=== PATIENT | female | born 1980 | race Caucasian/White ===

== ENCOUNTER 2024-04-22 11:35 | Emergency (ER) | payer OTHER, SELFPAY ==
[2024-04-22 11:49] VITALS: BP 126/100; PULSE 79; TEMP 37.1; O2SAT 100; BMI 23.3
--- NOTE | 2024-04-22 12:08 | ED_ITS ---
HPI HPI - Extremity Injury (Upper) General Chief Complaint: Extremity Injury, Upper Stated Complaint: LEFT ARM PAIN Time Seen by Provider: 04/22/24 12:01 Source: patient Mode of arrival: walk-in Limitations: no limitations History of Present Illness HPI narrative: The patient presenting with a left arm pain that started this morning she denies having any other complaints she also mentioned that she had something similar almost few weeks ago when she was diagnosed with possibly a tendon rupture and that is her words The patient had no fall or trauma and she is still able to move her elbow with no difficulty except for pain whenever she is bending her elbow in flexion Related Data Home Medications ?Medication ?Instructions ?Recorded ?Confirmed paroxetine HCl 40 mg tablet mg PO DAILY 04/22/24 Previous Rx's ?Medication ?Instructions ?Recorded ibuprofen 600 mg tablet 600 mg PO TID PRN pain #20 tabs 04/22/24 Allergies Allergy/AdvReac Type Severity Reaction Status Date / Time Sulfa (Sulfonamide Allergy Severe Anaphylaxis Verified 04/22/24 11:53 Antibiotics) Opioid HPI Opioid Management Most Recent Pain and Opioid Data: Last Pain Scale 6 04/22/24 12:13 04/22/24 Last MAR Pain Assessment 04/22/24 12:13 Review of Systems ROS Status of ROS 10 or more systems reviewed and unremark able except as noted in history and below PFSH PFSH Social History Little interest or pleasure in doing things: not at all Feeling down, depressed, or hopeless: not at all Exam Narrative Exam Narrative: Nurses notes and vital signs reviewed and patient is not hypoxic. Left arm exam: The patient left arm examination shows no bony prominences tenderness the patient have full range of movement in the elbow and the shoulder and it was noted that the patient have the bicep tendon intact The tenderness was on palpation and the patient had no vascular injury General: Well-appearing and in no apparent distress. Skin: Warm, dry, no pallor noted. No rash. Head: Normocephalic, atraumatic. Neck: Supple, non-tender. Eye: Pupils are equal, round and EOMI. No scleral icterus. Ears, Nose, Mouth, and Throat: TM are clear, no nasal mucosal hypertrophy. Oral mucosa is moist, no posterior oropharynx erythema, uvula is mid-line Cardiovascular: Regular Rate and Rhythm without murmur, gallop or rub. Respiratory: No accessory muscle use or respiratory distress. Lungs are clear to auscultation, no wheezing, rales or rhonchi Chest Wall: no tenderness Back: No midline thoracic or lumbar vertebral tenderness. No CVA tenderness Musculoskeletal: normal ROM, no calf or popliteal tenderness, no lower extremity edema/swelling GI: Abdomen is soft, non-distended. Normal bowel sounds. No masses appreciated. No tenderness to palpation. No rebound, guarding, or rigidity noted. Neurological: A&O x4. No cranial nerve dysfunction observed. No truncal ataxia. Moves all extremities. Sensation intact. Psychiatric: Cooperative and interactive. Normal mood and affect. Constitutional Vital Signs, click to edit/add: Last Vital Signs Temp 98.8 F 04/22/24 11:49 Pulse 79 04/22/24 11:49 Resp 16 04/22/24 11:49 BP 126/100 H 04/22/24 11:49 Pulse Ox 100 04/22/24 11:49 O2 Del Method Room Air 04/22/24 11:49 Course Vital Signs Vital signs: Vital Signs Temperature 98.8 F 04/22/24 11:49 Pulse Rate 79 04/22/24 11:49 Respiratory Rate 16 04/22/24 11:49 Blood Pressure 126/100 H 04/22/24 11:49 Pulse Oximetry 100 04/22/24 11:49 Oxygen Delivery Method Room Air 04/22/24 11:49 Temperature 98.8 F 04/22/24 11:49 Pulse Rate 79 04/22/24 11:49 Respiratory Rate 16 04/22/24 11:49 Blood Pressure 126/100 H 04/22/24 11:49 Pulse Oximetry 100 04/22/24 11:49 Oxygen Delivery Method Room Air 04/22/24 11:49 MDM - Extremity Injury (Upper) MDM Narrative Medical decision making narrative: The patient presented to us with a muscle sprain She was started on Toradol in the ER in addition to ibuprofen as needed for pain sling applied and the patient to follow-up with orthopedic as outpatient Patient took some Vicodin for her mother yesterday to sleep although she mentioned that the pain started this morning but she was instructed not to take any Vicodin for the pain I did offer the patient an x-ray but I did mention to her that this mostly muscular and she agreed The patient is to follow up with primary care physician in next 2-3 days or to return to the emergency department should any of the signs or symptoms worsen or new symptoms develop. The patient agrees with the following Diagnosis and Treatment plan and the patient will be discharged home. Discharge Plan Discharge Chief Complaint: Extremity Injury, Upper Clinical Impression: Arm sprain Patient Disposition: Home, Self-Care Time of Disposition Decision: 12:09 Condition: Good Prescriptions / Home Meds: New ibuprofen 600 mg tablet 600 mg PO TID PRN (Reason: pain) Qty: 20 0RF No Action paroxetine HCl 40 mg tablet PO DAILY Print Language: Estonian Instructions: Sprain (ED) Referrals: Magi Franco MD [Primary Care Provider] - 1 week Jasvir Palencia MD [Physician] - 1 week Discharge Date/Time: 04/22/24 12:24
[2024-04-22] MEDS: KETOROLAC TROMETHAMINE 30 MG/ML VIAL IM (12:13)
== END 2024-04-22 12:24 | disposition home or self-care (01) ==
PROVIDERS: Emergency Provider Emergency Medicine; PCP Specialist
DX: S53.402A Unspecified sprain of left elbow, initial encounter (principal); X58.XXXA Exposure to other specified factors, initial encounter
CPT/HCPCS: 96372; 99284; J1885

== ENCOUNTER 2024-09-25 14:29 | Emergency (ER) | payer OTHER, SELFPAY ==
[2024-09-25 14:46] VITALS: BP 137/96; PULSE 87; TEMP 36.9; O2SAT 99; BMI 21.6
--- NOTE | 2024-09-25 15:05 | ED_ITS ---
HPI - Dental/Oral General Chief complaint: Dental/Oral Stated complaint: DENTAL INFECTION Time Seen by Provider: 09/25/24 14:44 Source: patient Mode of arrival: walk-in History of Present Illness HPI Narrative: Patient is a 43-year-old female who presents to the emergency department from her dentist office for IV antibiotics. Patient states that for 3 days she has had pain to tooth #20 with swelling of the left mandible. She saw the dentist today who ordered x-rays and she states she has an infection in the bone . She states she was referred to the ER for IV antibiotics. She has had no fevers. She reports nausea from pain. She states she is having trouble swallowing because of pain in the left mandible. She has no concern for . Related Data Home Medications ?Medication ?Instructions ?Recorded ?Confirmed paroxetine HCl 40 mg tablet 40 mg PO DAILY 04/22/24 09/25/24 Previous Rx's ?Medication ?Instructions ?Recorded clindamycin HCl 150 mg capsule 300 mg (2 x 150 mg) PO Q6H 10 days 09/25/24 #80 caps hydrocodone 5 mg-acetaminophen 325 1 tab PO Q6H PRN pain 2 days #8 09/25/24 mg tablet tabs ketorolac 10 mg tablet 10 mg PO TID PRN pain #10 tabs 09/25/24 ondansetron 4 mg disintegrating 4 mg PO Q6H PRN nausea and 09/25/24 tablet vomiting #12 tabs Allergies Allergy/AdvReac Type Severity Reaction Status Date / Time Sulfa (Sulfonamide Allergy Severe Anaphylaxis Verified 04/22/24 11:53 Antibiotics) Review of Systems ROS Constitutional Denies: fever or chills Ears, nose, mouth, and throat Denies: throat pain or nasal congestion Cardiovascular Denies: chest pain Respiratory Denies: shortness of breath or cough Gastrointestinal Reports: nausea; Denies: vomiting or diarrhea Musculoskeletal Denies: back pain Integumentary/Breast Denies: rash Neurological Denies: numbness in extremities or weakness in extremities Hematologic/Lymphatic Denies: easy bruising or easy bleeding PFSH PFSH Social History Little interest or pleasure in doing things: not at all Feeling down, depressed, or hopeless: not at all Exam Narrative Exam Narrative: Gen.: Awake, alert, in no distress Head: Normocephalic, atraumatic ENT: Moist mucous membranes, mild swelling noted to the left mandible with no significant swelling noted. Tooth #20 with erosion to the gumline. No active drainage. No redness or swelling under the tongue. No trismus or drooling. Clear speech. Respiratory: No respiratory distress Extremities: Moves extremities equally Psych: Normal mood and affect Neuro: No focal neuro deficit Skin: Warm, dry, intact Constitutional Vital Signs, click to edit/add: Last Vital Signs Temp 98.4 F 09/25/24 14:46 Pulse 87 09/25/24 14:46 Resp 18 09/25/24 14:46 BP 137/96 H 09/25/24 14:46 Pulse Ox 99 09/25/24 14:46 Course Vital Signs Vital signs: Vital Signs Temperature 98.4 F 09/25/24 14:46 Pulse Rate 87 09/25/24 14:46 Respiratory Rate 18 09/25/24 14:46 Blood Pressure 137/96 H 09/25/24 14:46 Pulse Oximetry 99 09/25/24 14:46 Temperature 98.4 F 09/25/24 14:46 Pulse Rate 87 09/25/24 14:46 Respiratory Rate 18 09/25/24 14:46 Blood Pressure 137/96 H 09/25/24 14:46 Pulse Oximetry 99 09/25/24 14:46 MDM - Dental/Oral MDM Narrative Medical decision making narrative: It was recommended to the patient that she have a CT of the soft tissue of the neck given her reporting that she has an infection in the bone per the dental x-rays and she is having difficulty swallowing. I discussed the reasoning for this CT of the soft tissue of the neck, to rule out any issues with the airway or soft tissue infections extending into the neck. Osteomyelitis of the bone would also be able to be seen. Patient declined a CT scan, she states I do not need that . She was medicated with IV clindamycin, Toradol and Zofran and given dental analgesia. She has no fevers or tachycardia. Her airway is widely open and patent on exam in the ER and she has no difficulty tolerating her secretions, speaking or swallowing. Suspect that this patient has a simple dental abscess, will treat with antibiotics, analgesics since none were provided by the dentist office. Follow-up with dental and return to the ER if symptoms change or worsen SUPERVISED APC VISIT, PHYSICIAN ATTESTATION: Based on the medical record the care appears appropriate. ? Discharge Plan Discharge Chief Complaint: Dental/Oral Clinical Impression: Dental abscess Patient Disposition: Home, Self-Care Time of Disposition Decision: 15:17 Condition: Good Prescriptions / Home Meds: New hydrocodone-acetaminophen 5-325 mg tablet 1 tab PO Q6H PRN (Reason: pain) 2 Days Qty: 8 0RF Rx Instructions: DX: K08.89 clindamycin HCl 150 mg capsule 300 mg PO Q6H 10 Days Qty: 80 0RF ketorolac 10 mg tablet 10 mg PO TID PRN (Reason: pain) Qty: 10 0RF ondansetron 4 mg tablet,disintegrating 4 mg PO Q6H PRN (Reason: nausea and vomiting) Qty: 12 0RF No Action paroxetine HCl 40 mg tablet 40 mg PO DAILY Print Language: Albanian Instructions: Dental Abscess (ED) Additional Instructions: Please finish antibiotics and follow up with your dentist Referrals: Magi Franco MD [Primary Care Provider] - 1 week
--- OUTSIDE RECORDS SUMMARY | 2024-09-25 15:05 | XMS_ITS | CCD ---
Author Organization [facility] Care Team Providers Care Resistor Inspector Name Role Phone Michael Vivas Attending Provider [phone] Magi Franco Primary Care Provider Jocelynn Ko Unavailable Sybil Yanes Unavailable FRANCO ., DR MAGI Ibanez Primary Care Unavailable GAYATRI ., ANA Admitting Unavailable GAYATRI ., ANA Attending Unavailable GAYATRI ., ANA Consulting Unavailable ALEJANDRA ., DR VEGA Admitting Unavailable FRANCO ., DR MAGI Ibanez Primary Care Unavailable ALEJANDRA ., DR VEGA Attending Unavailable ALEJANDRA ., DR VEGA Consulting Unavailable ZIEBER, DR JASVIR Espinoza Consulting Unavailable FRANCO ., DR MAGI Ibanez Attending Unavailable FRANCO ., DR MAGI Ibanez Consulting Unavailable FRANCO ., DR MAGI Ibanez Primary Care Unavailable FRANCO ., DR MAGI Ibanez Admitting Unavailable BAY ., BOLA Admitting Unavailable ZIEBER, DR JASVIR Espinoza Consulting Unavailable BAY .BOLA Attending Unavailable FRANCO ., DR MAGI Ibanez Primary Care Unavailable BAY .BOLA Consulting Unavailable Lelo Curran Attending Unavailable Manoj Vázquez Attending Unavailable Allergies Allergy Classification Reported Allergen(s) Allergy Type Date of Onset Reaction(s) Facility Sulfonamides (antibiotic) (1 source) Sulfonamides (Antibiotic) Drug Allergy 12-05-19 21 Swelling of Lip/Tongue/Thr oat [facility] (2 sources) Codeine Drug Allergy anaphylaxis [facility] Other (2 sources) Ketorolac Drug Allergy hives [facility] Other (2 sources) Naproxen Drug Allergy rash [facility] Other (2 sources) Sulfonamides (Antibiotic) Propensity to adverse reactions anaphylaxis [facility] Other (1 source) Sulfonamides (Antibiotic) Drug allergy (disorder) [facility] (1 source) traMADol Drug Allergy [facility] (1 source) Sulfonamides (Antibiotic); Translations: [sulfa drugs] Propensity to adverse reactions (disorder) [facility] Medications Current Medications Medication Drug Class(es) Dates Sig (Normalized) Sig (Original) [id number] 200 actuat albuterol 0.09 mg/actuat metered dose inhaler (1 source) beta2-Adrenergic Agonist Start: 05-01-2021 take 2 puff(s) by inhalation every four hours as needed Albuterol Sulfate HFA 108 (90 Base) MCG/ACT 2 puffs as needed Inhalation every 4 hrs Apr, Active atorvastatin 20 mg oral tablet (3 sources) HMG-CoA Reductase Inhibitor Start: 12-04-2020 take 20 mg by mouth once daily in the morning Atorvastatin Active 20 MG PO Every morning December 04, 2020 1:31pm Lipitor Active bisoprolol fumarate 5 mg / hydroCHLOROthiazide 6.25 mg oral tablet (3 sources) Thiazide Diuretic, beta-Adrenergic Cruz Start: 12-04-2020 take 1 tablet by mouth once daily in the morning Bisoprolol-Hydrochlorothiazide Active 1 TAB PO Every morning December 04, 2020 1:31pm Ziac Active cetirizine hydrochloride 10 mg oral tablet (3 sources) Histamine-1 Receptor Antagonist Start: 12-04-2020 take 10 mg by mouth once daily in the morning Cetirizine Active 10 MG PO Every morning December 04, 2020 1:31pm ZyrTEC Allergy A ctive estrogens, conjugated (fci) 0.3 mg oral tablet (3 sources) Estrogen Start: 12-04-2020 take 1 tablet by mouth once daily in the morning Conjugated Estrogens (Premarin) 0.3 mg tablet Active 0.3 MG PO Every morning December 04, 2020 1:31pm Premarin Active hydrOXYzine (2 sources) Antihistamine hydrOXYzine HCl Active levothyroxine sodium 0.1 mg oral tablet (3 sources) l-Thyroxine Start: 12-04-2020 take 100 ug by mouth once daily in the morning Levothyroxine Active 100 MCG PO Every morning December 04, 2020 1:31pm Levoxyl Active methylPREDNISolone 4 mg oral tablet (1 source) Corticosteroid Start: 05-01-2021 methylPREDNISolone 4 MG as directed Orally Once a day for 6 days Apr, Active PARoxetine hydrochloride 40 mg oral tablet (3 sources) Serotonin Reuptake Inhibitor Start: 12-04-2020 take 40 mg by mouth once daily in the morning Paroxetine Hcl Active 40 MG PO Every morning December 04, 2020 1:31pm Paxil 40MG 1 rema ly Active Problems Active Problems Problem Classification Problem Date Documented Date Episodic/Chronic Chronic obstructive pulmonary disease and bronchiectasis (1 source) Chronic obstructive pulmonary disease, unspecified; Translations: [COPD UNSPECIFIED] Onset: 2 Chronic Disorders of lipid metabolism (1 source) Pure hypercholesterolemia, unspecified; Translations: [PURE HYPERCHOLESTEROLEMIA UNSPEC] Onset: 2 Chronic E Codes: Natural/environment (1 source) Exposure to other specified factors, initial encounter; Translations: [EXPOSURE OTHER SPEC FACTORS INITIAL] Onset: 3 Episodic Essential hypertension (2 sources) Essential hypertension; Translations: [Essential (primary) hypertension] Chronic Other aftercare (1 source) Other exterminator helper termite (current) drug therapy; Translations: [OTH FPC CURRENT DRUG THERAPY] Onset: 3 Episodic Other connective tissue disease (3 sources) Pain in right arm; Translations: [PAIN IN RIGHT ARM] Onset: 3 Episodic Other upper respiratory disease (2 sources) Seasonal allergic rhinitis; Translations: [Other seasonal allergic rhinitis] Chronic Other upper respiratory infections (1 source) Chronic sinusitis, unspecified; Translations: [CHRONIC SINUSITIS UNSPECIFIED] Onset: 2 Chronic Sprains and strains (1 source) Strain of unspecified muscle, fascia and tendon at shoulder and upper arm level, right arm, initial encounter; Translations: [STRN UNS MSC F TND SHLDR UA RA INIT] Onset: 3 Episodic Substance-related disorders (1 source) Nicotine dependence, cigarettes, uncomplicated; Translations: [NICOTINE DEPEND CIGARETTES UNCOMP] Onset: 3 Chronic Unclassified (2 sources) COUGH, UNSPECIFIED; Translations: [COUGH, UNSPECIFIED] Onset: 2 Past or Other Problems Problem Classification Problem Date Documented Da te Episodic/Chronic Chronic obstructive pulmonary disease and bronchiectasis (1 source) Bronchitis, not specified as acute or chronic; Translations: [Bronchitis J40] Onset: 05-01-2021 Resolved: 05-01-2021 Episodic Deficiency and other anemia (4 sources) Anemia, unspecified; Translations: [ANEMIA UNSPECIFIED] Onset: 12-16-2021 Episodic Immunizations and screening for infectious disease (1 source) Contact with and (suspected) exposure to other viral communicable diseases; Translations: [Contact with and (suspected) exposure to other viral communicable diseases Z20.828] Onset: 05-01-2021 Resolved: 05-01-2021 Episodic Other screening for suspected conditions (not mental disorders or infectious disease) (4 sources) Encounter for screening mammogram for malignant neoplasm of breast; Translations: [ENC SCR MAMMO MALIG NEOPLASM BREAST] Onset: 02-17-2022 Episodic Other upper respiratory infections (1 source) Acute sinusitis, unspecified; Translations: [ACUTE SINUSITIS UNSPECIFIED] Onset: 12-11-2021 Episodic Residual codes; unclassified (1 source) Family history of malignant neoplasm of breast; Translations: [FAMILY HX MALIG NEOPLASM OF BREAST] Onset: 02-18-2022 Episodic Unclassified (1 source) COUGH, UNSPECIFIED; Translations: [COUGH, UNSPECIFIED] Onset: 12-07-2021 Results Test Name Value Interpretation Reference Range Facility MG MAMM SCREEN 3D LISA CADon 02-17-2022 MG MAMM SCREEN 3D LISA CAD Patient: HALI HORVATH Exam Date: 02/17/2022 : 1980 Gender:F Ordering : DR SILVIA ROBERTS . Admission #: [id number] Family : Order #: [id number] CLICK HERE TO VIEW EXAM RADIOLOGY REPORT PROCEDURE: MAMMOGRAM SCREENING 3D BILATERAL CAD COMPARISON: None. INDICATIONS: Screening mammography Calculator Name NCI Breast Cancer Risk Assessment Tool 5 Year Breast Cancer Risk 0.70% Lifetime Breast Cancer Risk 10.00% Personal Breast Cancer No Personal Ovarian Cancer No Treatments None Family Cancers Aunt-paternal with breast cancer at age 50. LOCATION: [facility] BREAST COMPOSITION: Extremely dense, which lowers the sensitivity of mammography. FINDINGS: DIAGNOSTIC CATEGORY 1--NEGATIVE. RIGHT BREAST: No significant suspicious finding. LEFT BREAST: No significant suspicious finding. RECOMMENDATIONS: ROUTINE MAMMOGRAM AND CLINICAL EVALUATION IN 12 MONTHS. PLEASE NOTE: A NORMAL MAMMOGRAM DOES NOT EXCLUDE THE POSSIBILITY OF BREAST CANCER. A CLINICALLY SUSPICIOUS PALPABLE LUMP SHOULD BE BIOPSIED. Dictated by: Jasvir Pak M.D. on 02/18/2022 at 14:19 Approved by: Jasvir Pak M.D. on 02/18/2022 at 14:22 Normal [facility] FOLATE ([facility])on 2 Folate 9.1 ng/mL Normal >3.0 [facility] Comment on above: Result Comment: A se rum folate concentration of less than 3.1 ng/mL is considered to represent clinical deficiency. Performed By: #### F OLALC #### [facility] [address] [place] [address] Dr. Luis Houston CBC AUTO DIFFon 12-16-2021 BASO # 0.0 103/ul Normal 0.0-0.1 [facility] Comment on above: Performed By: #### C BC #### [facility] [address] [place] [address] Dr. Luis Houston Basophils/100 WBC (Bld) 0.4 % Normal 0.2-2.0 [facility] Comment on above: Performed By: #### C BC #### [facility] [address] [place] [address] Dr. Luis Houston EO # 0.1 103/ul Normal 0.0-0.7 [facility] Comment on above: Performed By: #### C BC #### [facility] [address] [place] [address] Dr. Luis Houston Eosinophils/100 WBC (Bld) 0.9 % Normal 0.9-7.0 [facility] Comment on above: Performed By: #### C BC #### [facility] [address] [place] [address] Dr. Luis Houston Erythrocyte distribution width (RBC) [Ratio] 11.8 % Normal 11.0-15.0 [facility] Comment on above: Performed By: #### C BC #### [facility] [address] [place] [address] Dr. Luis Houston Hematocrit (Bld) [Volume fraction] 40.9 % Normal 36.0-48.0 [facility] Comment on above: Performed By: #### C BC #### [facility] [address] [place] [address] Dr. Luis Houston Hemoglobin (Bld) [Mass/Vol] 13.9 g/dL Normal 12.0-16.0 [facility] Comment on above: Performed By: #### C BC #### [facility] [address] [place] [address] Dr. Luis Houston IG # 0.18 10e3/ul Critically high 0.00-0.03 [facility] Comment on above: Performed By: #### C BC #### [facility] [address] [place] [address] Dr. Luis Houston IG % 1.7 % Critically high 0.0-0.5 [facility] Comment on above: Performed By: #### C BC #### [facility] [address] [place] [address] Dr. Luis Houston LYMPH # 2.8 103/ul Normal 1.2-3.8 [facility] Comment on above: Performed By: #### C BC #### [facility] [address] [place] [address] Dr. Luis Houston Lymphocytes/100 WBC (Bld) 26.1 % Normal 20.5-60.0 [facility] Comment on above: Performed By: #### C BC #### [facility] [address] [place] [address] Dr. Luis Houston MANUAL DIFF REQ NO Normal [facility] Comment on above: Performed By: #### C BC #### [facility] [address] [place] [address] Dr. Luis Houston MCH (RBC) [Entitic mass] 31.8 pg Normal 26.7-34.0 [facility] Comment on above: Performed By: #### C BC #### [facility] [address] [place] [address] Dr. Luis Houston MCHC (RBC) [Mass/Vol] 34.0 g/dL Normal 29.9-35.2 [facility] Comment on above: Performed By: #### C BC #### [facility] [address] [address] [address] Luis Houston MCV (RBC) [Entitic vol] 93.6 fL Normal 81.0-99.0 [facility] Comment on above: Performed By: #### C BC #### [facility] [address] [address] [address] Luis Houston MONO # 0.8 103/ul Normal 0.3-0.8 [facility] Comment on above: Performed By: #### C BC #### [facility] [address] [address] [address] Luis Houston Monocytes/100 WBC (Bld) 7.4 % Normal 1.7-12.0 [facility] Comment on above: Performed By: #### C BC #### [facility] [address] [address] [address] Luis Houston NEUT # 6.8 103/ul Critically high 1.4-6.5 [facility] Comment on above: Performed By: #### C BC #### [facility] [address] [address] [address] Luis Houston Neutrophils/100 WBC (Bld) 63.5 % Normal 43.0-75.0 [facility] Comment on above: Performed By: #### C BC #### [facility] [address] [address] [address] Luis Houston Platelet mean volume (Bld) [Entitic vol] 10.1 fL Normal 9.5-13.5 [facility] Comment on above: Performed By: #### C BC #### [facility] [address] [address] [address] Luis Houston PLT 290 103/ul Normal 150-450 [facility] Comment on above: Performed By: #### C BC #### [facility] [address] [address] [address] Luis Houston RBC 4.37 106/ul Normal 4.20-5.40 [facility] Comment on above: Performed By: #### C BC #### [facility] [address] [address] [address] Luis Houston WBC 10.7 103/ul Normal 4.0-11.0 [facility] Comment on above: Performed By: #### C BC #### [facility] [address] [address] [address] Luis Houston DIRECT LDLon 12-16-2021 Cholesterol in LDL [Mass/Vol] 82 mg/dL Normal [facility] Comment on above: Performed By: #### T SH, DLDL, CMP, FT3, LIPID ####[facility] [id number] [id number] Luis Houston DLDL NORMAL SEE BELOW Normal [facility] Comment on above: Result Comment: <100 mg/dl OPTIMAL 100 - 129 mg/dl NEAR OR ABOVE OPTIMAL 130 - 159 mg/dl BORDERLINE HIGH 160 - 189 mg/dl HIGH >190 mg/dl VERY HIGH Performed By: #### T SH, DLDL, CMP, FT3, LIPID ####[facility] [id number] [address]Dr[address] Luis Houston FREE T3on 12-16-2021 FREE T3 2.23 pg/mlL Normal 2.18-3.98 [facility] Comment on above: Performed By: #### T SH, DLDL, CMP, FT3, LIPID #### [facility] [address] [address] [address] Luis Houston FREE T4on 12-16-2021 Free T4 [Mass/Vol] 0.91 ng/dL Normal 0.76-1.46 [facility] Comment on above: Performed By: #### F T4, VITB12 #### [facility] [address] [address] [address] Luis Houston LIPID PROFILEon 12-16-2021 CHOL-HDL RATIO NORM SEE BELOW Normal [facility] Comment on above: Result Comment: 3.3 - 4.4 LOW RISK 4.4 - 7.1 AVERAGE RISK 7.1 - 11.0 MODERATE RISK >11.0 HIGH RISK Performed By: #### T SH, DLDL, CMP, FT3, LIPID #### [facility] [address] [address] [address] Luis Houston Cholesterol [Mass/Vol] 179 mg/dL Normal <=200 [facility] Comment on above: Performed By: #### T SH, DLDL, CMP, FT3, LIPID #### [facility] [address] [address] [address] Luis Houston Cholesterol in HDL [Mass/Vol] 28 mg/dL Critically low 40-60 [facility] Comment on above: Performed By: #### T SH, DLDL, CMP, FT3, LIPID #### [facility] [address] [place] [address] Dr. Luis Houston Cholesterol.total/ Cholesterol in HDL [Mass ratio] 6.4 {ratio} Normal [facility] Comment on above: Performed By: #### T SH, DLDL, CMP, FT3, LIPID #### [facility] [address] [place] [address] Dr. Luis Houston HDL NORMAL > or = 60 mg/dl - LOW CARDIOVASCULAR RISK <40 mg/dl - HIGH CARDIOVASCULAR RISK Normal [facility] Comment on above: Performed By: #### T SH, DLDL, CMP, FT3, LIPID #### [facility] [address] [place] [address] Dr. Luis Houston Triglyceride [Mass/Vol] 470 mg/dL Critically high <=150 [facility] Comment on above: Performed By: #### T SH, DLDL, CMP, FT3, LIPID #### [facility] [address] [place] [address] Dr. Luis Houston PROF 14(COMP METB)on 022 Albumin [Mass/Vol] 3.9 g/dL Normal 3.4-5.[address] [facility] Comment on above: Performed By: #### T SH, DLDL, CMP, FT3, LIPID #### [facility] [address] [place] [address] Dr. Luis Houston Albumin/Globulin [Mass ratio] 1.0 {ratio} Normal [facility] Comment on above: Performed By: #### T SH, DLDL, CMP, FT3, LIPID #### [facility] [address] [place] [address] Dr. Luis Houston ALP [Catalytic activity/Vol] 83 U/L Normal 46-116 [facility] Comment on above: Performed By: #### T SH, DLDL, CMP, FT3, LIPID #### [facility] [address] [place] [address] Dr. Luis Houston ALT [Catalytic activity/Vol] 48 U/L Normal 14-59 [facility] Comment on above: Performed By: #### T SH, DLDL, CMP, FT3, LIPID #### [facility] [address] [place] [address] Dr. Luis Houston Anion gap [Moles/Vol] 15.5 mmol/L Normal [facility] Comment on above: Performed By: #### T SH, DLDL, CMP, FT3, LIPID #### [facility] [address] [place] [address] Dr. Luis Houston AST [Catalytic activity/Vol] 28 U/L Normal 15-37 [facility] Comment on above: Performed By: #### T SH, DLDL, CMP, FT3, LIPID #### [facility] [address] [place] [address] Dr. Luis Houston Bilirubin [Mass/Vol] 0.5 mg/dL Normal 0.2-1.0 [facility] Comment on above: Performed By: #### T SH, DLDL, CMP, FT3, LIPID #### [facility] [address] [place] [address] Dr. Luis Houston Calcium [Mass/Vol] 9.0 mg/dL Normal 8.5-10.[address] [facility] Comment on above: Performed By: #### T SH, DLDL, CMP, FT3, LIPID #### [facility] [address] [place] [address] Dr. Luis Houston Chloride [Moles/Vol] 101 mmol/L Normal 98-107 [facility] Comment on above: Performed By: #### T SH, DLDL, CMP, FT3, LIPID #### [facility] [address] [address] [address] Luis Houston CO2 [Moles/Vol] 26.2 mmol/L Normal 21.0-32.0 [facility] Comment on above: Performed By: #### T SH, DLDL, CMP, FT3, LIPID #### [facility] [address] [address] [address] Luis Houston Creatinine [Mass/Vol] 0.80 mg/dL Normal 0.55-1.02 [facility] Comment on above: Performed By: #### T SH, DLDL, CMP, FT3, LIPID #### [facility] [address] [place] [address] Dr. Luis Houston EGFR-AF PARAGUAYAN >60 Normal >=60 [facility] Comment on above: Performed By: #### T SH, DLDL, CMP, FT3, LIPID #### [facility] [address] [place] [address] Dr. Luis Houston EGFR-NON AF PARAGUAYAN >60 Normal >=60 [facility] Comment on above: Performed By: #### T SH, DLDL, CMP, FT3, LIPID #### [facility] [address] [place] [address] Dr. Luis Houston Globulin (S) [Mass/Vol] 3.9 g/dL Normal [facility] Comment on above: Performed By: #### T SH, DLDL, CMP, FT3, LIPID #### [facility] [address] [place] [address] Dr. Luis Houston Glucose [Mass/Vol] 117 mg/dL Critically high 74-106 [facility] Comment on above: Performed By: #### T SH, DLDL, CMP, FT3, LIPID #### [facility] [address] [place] [address] Dr. Luis Houston Potassium [Moles/Vol] 3.7 mmol/L Normal 3.5-5.1 [facility] Comment on above: Performed By: #### T SH, DLDL, CMP, FT3, LIPID #### [facility] [address] [place] [address] Dr. Luis Houston Protein [Mass/Vol] 7.8 g/dL Normal 6.4-8.[address] [facility] Comment on above: Performed By: #### T SH, DLDL, CMP, FT3, LIPID #### [facility] [address] [place] [address] Dr. Luis Houston Sodium [Moles/Vol] 139 mmol/L Normal 136-145 [facility] Comment on above: Performed By: #### T SH, DLDL, CMP, FT3, LIPID #### [facility] [address] [place] [address] Dr. Luis Houston Urea nitrogen [Mass/Vol] 9.0 mg/dL Normal 7.0-18.0 [facility] Comment on above: Performed By: #### T SH, DLDL, CMP, FT3, LIPID #### [facility] [address] [place] [address] Dr. Luis Houston Urea nitrogen/Creatinin e [Mass ratio] 11.2 mg/mg Normal [facility] Comment on above: Performed By: #### T SH, DLDL, CMP, FT3, LIPID #### [facility] [address] [place] [address] Dr. Luis Houston TSHon 12-16-2021 TSH 0.475 uIU/mL Normal 0.358-3.740 [facility] Comment on above: Performed By: #### T SH, DLDL, CMP, FT3, LIPID #### [facility] [address] [place] [address] Dr. Luis Houston VITAMIN B12on 12-16-2021 Cobalamin (Vitamin B12) [Mass/Vol] 457.0 pg/mL Normal 193.0-986.0 [facility] Comment on above: Performed By: #### F T4, VITB12 #### [facility] [address] [place] [address] Dr. Luis Houston Coding Summaryon 11-24-2021 Coding Summary [employer] 64 NevgnnzrZOr0nWq+PGhl YWQ+LX3BJLTmB49kdFKd dD4EP4vJXZ9EINJDPXCB IL5GCE8keBR5ZZxqD7Vt biAv PndrcTLsAY92VZq4RTY5 xBavZIcweR4wgXMtS8s8 TbHmQE64wA61UNyqXLNi DwA5CoVbpykyaZBe T2eeXpYnrMPyXbk+PHRh YmxlIHdpZHRoPScxMDAl YcSksWqtYO8tIx3xBRXf LWNvbGxhcHNlOiBj m3mxWOSzCEjsKL8jtScy K8FocSW0LQZcy9v5Mz58 dHI+OAGhULZ2wFrsPIli w684CaLwo4wyEYQ0 gQCcEDplNPJ8C34gh8Z7 YEYtAMKoOXT7aHU0zB5j rFhulfvrP8ThcRKsFxF5 LUO8cEJhfP6yaQct ariknK5eMie+B65ZJK3Q GHLSAL1SNmp4R3DiTdmd dHI+CY32YIUyRT10wPMo hDHpb7ljlAm8GaBr VGOtRVZ0fRixRLtcj9Ks VXOwJ37viVKmd6M3DJZj yFjqeLWoPfSvsYS3rV9t NGejavqiy1ivdahf Pugkh5pjfg12iL13I82f PZvcEZPpDNM7JXBfCAZt uJvsne7lbE1nSu1+IDxj a9jyz6hfwFf7DcAv DLMcvcQxfScgGBE2u7Fj Hz63O4OmlDpxy7SpPpj1 ym40iQInj7Z8jOY0PRdr PIWvtA5oUTbiDcQ8 RKRdLjZbuB06jNQoKGrj Dv0rjVwdfVukND7wCVCf qfegHOAzyZ7vLLLpnXVn kMngHH6xKTPrxrab r685AoWzLFF2POIyzXBf G4KxkJ8gWqGqZHCdRJEa W5JicCUnZIamR214DGad ViD1QHUmurJxL7Uw JCLwrRudGvL5r9J7Kf1R z3VndtivNRA8CGwnMKE8 LoNhSqKiYnT2B7YsHko9 FBDdsJvcEO0tJ7Um ORXzmbdcbceyrUW8LWPh KAEzpV51sMBtZThfXs8e o5O0d953BTYaNOHdgZ83 Aw0mkZckYVGzrCBS oQ7nievjg8ipvgqaBmFt UAAtAFk6FMv6UHHqzGao WgDwQLI2XoH2UBC8lSAt iR7zxBkevdfvwQ7b Oyc+G72aoM2xSKS3UAY5 nyhuNARsnwLfKW04JU92 Y5FwMqcnpEAfiHV+PGRp irEklHfdNM1kBkLh j3tqy1JsGKqrZ7WsGLTq VCuyIsy9NQJtOHW5rYL2 hK0nBMFmCJmxj2Y5eGD4 F7AugdSsfl7kb3wm UGSfQZsbI10weTVwf9I1 DXIbfXQ0SRAdzIxtTpVg qP44Fhl+UTEykZznf4Eq Iootn6ede7aqhFq7 IjMwJSIgdmFsaWduPSJ0 t5SdXl68L73qOBaqKCRj YPNlBWKqFIMzfQkqih1x nI3cYc9+PGNvbCB3 zSW6mD6dPCKwRiY0ARzs U642DsFcjZCsIbalg8zw d7jmxQs8HeYoSSQhqqSu jOpbWYV5q6FkGc33 O09rZBtaFLCxPYRwJRXh GAJrdYcyhi7cxC6tQm7+ PC9mi0tgwy73pQ29jVE+ SEIvOKZ0gLczXYos JXYwwH4dZGumFaN7SYTp WnPvfT74nWGwLQrtCl1e fPdbuUomVX5vLAKoetwd n790PcPbq1nvKASo yNTmFDplFDB9I39re6Y9 ZIEzXYSsVPC7vRA6uX7p bGlnbjogbGVmdDsgdmVy xZihYErjESacW259 IHRvcDsnPlBhdGllbnQg UoPkSIh7W4CpPwn1EHGw oYveQE0glHIiKEwgIt6s vEtdfFljJO4gPPRr thatx272KpMmn2gwLCWq qBJhRCfqRYH7L01ze8A6 JOBeDRUnABD8nRN7eN1f bGlnbjogbGVmdDsg usTvrCsdZMdhDZreN914 IHRvcDsnPkJpcnRoIERh zXK0UZ96GY89aCTjl8U7 yNY5G9ZvINBvwukd rotqhUH5OIFuQNZqvH76 Vb1pnLwlAa3xDNFqTDV2 IKRwbAOgK7GxrB3hGpGz AQUyURKbH7DyfIPw GDfrY112NAtzJzT3MGQb gzIzY9UkCKAnpYrmTuB8 p4T5Dx8LA0S4FW13CM33 cUVse0L1hMF0C9Lr KZQlnfpuimvclDY7MXOj FHAjcK73Sz4afTglIo1n HELgSHK4PWTytFJxU7My aR8oUqDcQCRxPMVf V9DesKUaEXwyP245HGec OwH1HSIwszBsD8HqEQVr wDtkNzL1f9E4Az0BTCa8 UJ37GR50vJYol8D4 aYR2W4UqAHZfxdbadxis yFG1LBMuFWZplS84Cu4p aJjuPp3rDHJcCFE6CLFn hFDgJ8OoqD0wBdTa XBOvBWHkW4CjcQGaWBtn N151LVawEnW3IUYmdtDj B0LiTTBrpKixTeH7y4P7 Yh1YUYLuTW47XHY2 eMF4FN84OI24H5KjZmkh dGFibGU+PHRhYmxlIHdp ZHRoPScxMDAlJyBzdHls PC9oJp4hFHLiFOVn wTnqhRVvLbGse2pjRZEo JOiyQT9nrOwyW6FqpQP0 KVYbx2j1Wg48E33oE4Fv dXA+CYXgaLM2lVG4 wD7sGqStIcN7ROncO707 GgDcuLFfPqanp2vdt7vo zGs7UwS2YVMosdBjnYal IQM3y9PfPv24L78s IHdpZHRoPSIxNSUiIHZh kYdvuh7mcA9mEi6+PGNv kTZ4eCM9yN8kQbCdXaW1 NOvlQ919VpAvxJKv Yfatp9qca7ihdYp2NeGa YLAvpfPpxSfxUHF6r9Eh Lv18J5VgvRqsg1XgUal9 df06dLGsp4Y2zFN9 B3TqIWDmzhvboVGnrIyq UV7eACSubykjMPBgpH3y MHKfD6y4FqXuSnW8FUvu I4CtxpJ0BBGbhOVi XNgbFGW7C05hl7S8BJPa LASiERK4xQP8dU2coQez bjogbGVmdDsgdmVydGlj VDvxBAkyZ002SGVe xIwuHXJcdM3pIPWbvUMm gZdfFR1fRDNaleonGrSU VUNLLCBDQVJSSUUgTDwv dGQ+FKEjTCZ4vXqs UYqvWCScoW5xXRZnA6m0 QhGwFwE5NYygD8MpZPWr lxezQf76qU2tEtLfDrO9 GYmeF7YuhgF8IGRg gNXzJHccQLQ1W18ae5C8 CGQpPDYyWZM8lMB6vN8w bGlnbjogbGVmdDsgdmVy eLxtHIweNHtpD150 WFUiaKdqRfK4EwR7QkX2 SJD0M0WwBoq0FIWwrZay TK8oqDWbJItfSi7nyUvy gTxoKM3fZGVtvyne PTZleI9wNBQmxGPgnGxf JC4aTYJvpyktr450VaEx TKD2AQDuxNKyJ8JasR6f BnRdNWMeZCHrW6Sk dTIeKTqlR238IRqxTeI2 KQKlkpXeT4VxPVLhwEis FfN7o8I0Qs00AyDAGXXa czwvdGQ+PHRkIHN0 tNlwENnoNEFkjX4iROPd H1k0QsDzKlM9DBogN7Se ZYOkvzdjRj07zD1jXyRj JoA2HJivG0NastG7 GOFdcWOiSTzmYXA6A14b p5U8UEWqZVHvCQK2kAG3 rS1gtDvozwaviOJdhPgx dmVydGljYWwtYWxp G576SKFydIipMtJIJXAM RTwvdGQ+NMQkMBM6nYgo BZyrJAZsqW2xJRKqX9g5 MaItBdC4VDwkM5Ue KTJggtkfQp87uP8cNeYj ZgI7HOibF4TwjjL0EHHf zLYcTGcmFAK4J76rn1X8 IJTwJBQeNQX4xKN6 lL9moXdwacsnhHTbrJuh mqNrfMkhXSkjOOlwJ589 ZBMokVyhMx1LKE98UE91 S3QwKreayWRqjYR+ PHRhYmxlIHdpZHRoPScx IGKgWyRjsBtdPH7zCg7x ZGVyLWNvbGxhcHNlOiBj b6uaROEjYKdcHG0j wVdcN5EplOK8JBZar3r4 Zi00U26uK0VorKX+PGNv tXR4uJA6zM7qPjLhIuC5 STffM373MsRshYMo Qsoby7nor7uceFf1RjSk NBRzoxRwbCbpTSG9n8Sd Hy97M80hQOmrDILrERCn ROCxCAPpqGnhcj7a nS3qTx7+WDWsiRC3mIV7 cJ5jFcXgCnR4ITkeP536 ZdMcjKXfLqlpI47vL5Ub dXA+IJLuAva1QSGc tPtgKT1ztAChAXpqSk8h BZM1EiInItWxMJzaD2Rx GEErlqcredugkGM5VNEy XYOmaK61Yo1hnQxr Wk2iJJTnRDA8BRUeePXb O5GvyJ2yThFhRZMaURDz Y0KeiJZfHWgmX772DWra TwC6RNIwcyJfH4Dw MIZxkSxeMwH5u5S1Mo7W nMxlnOUfUT7fUyUpQDl1 I5QcOcc7GVJogEndGP1g qYCaVJbqYu2cqBvl xSgfCJ8kQPQjxataz590 RqVkg1izBEJgnPOkGSaa QSC9Y08zp6U0YYKlASPd TFD0uOA0zM3ynXsf bjogbGVmdDsgdmVydGlj RFywSCziX695EFIueGtg OlMUSld2U7SmGmo7CEBv zVekPP2klMUfXDeq Sv0koYtofRhiHE8aWFJw wmoan475RaJpp1frWPAi cOWhOUytMFQ2L56kn9I8 WXEdVCUnWJN1zFN4 pP9rmVfegvwkaVXktUca jzRftEryJUqkUHqyE000 MOQbeSvjYq5MXjs0O7Gf Nvy7RVZfiQzfDP1n yYPuOJgsFn2uhVmiwQrj EU6wYDOropcxk109BiSm y0oeSSLqvWCuSOezGAG2 J86yg8P2OLNaSEMt NKU5rSC3dA0dnOdeexas bGVmdDsgdmVydGljYWwt EOckP386PXRvpUvxBaZy eWVyOjwvdGQ+PC90 md29A2JcTsyyAtt8JGFe QSK2uOS6gL5pTWWqXVfr t7C2gLM1C0InhwTvaa3a [id number] [facility] (more content not included)... [facility] ED Clinical Summaryon 2021 ED Clinical Summary [facility] ? Urgent Care [address] [place] [address] Clinical Summary PERSON INFORMATION Name: HALI CHILD Age: 41 Years Sex: FEMALE : 1980 MRN: Acct#: Visit Reason: UC - Back Pain; RT SHOULDER PAIN BACK PAIN Arrival: 11/18/2021 11:23:53 Discharge: 11/18/2021 12:23:00 LOS: 000 01:00 Check In: 11/18/2021 11:23:53 Checkout: 11/18/2021 12:23:00 Address: [address] [place] [id number] PCP: MAGI FRANCO PROVIDER INFORMATION Provider Role Assigned Unassigned Duke RN, Domen[place] ED Nurse 11/18/2021 11:36:37 Yan Yarbrough PA-C ED PA 11/18/2021 11:40:34 VITALS INFORMATION Vital Sign Triage Latest Temperature Tympanic Temperature Temporal Artery Pulse Rate O2 Sat 99 % 99 % Respiratory Rate Blood Pressure /82 mmHg /82 mmHg MEDICAL INFORMATION Medications Given: Medication Dose Route ketorolac 30 mg IM Allergy Information: sulfa drug PHYSICIAN DOCUMENTATION DISCHARGE INFORMATION: Discharge Disposition: Home Discharge Location: Home PATIENT EDUCATION INFORMATION Instructions: Shoulder Pain, Drrv-iz-Usyg; Sciatica, Bxtr-fn-Iyrq Follow-Up: With: Address: When: MAGI FARNCO [address] [place], [place] [id number] Business (1) Within 1 week Comments: Please follow-up with Dr. Franco, call the office schedule an appointment to be seen in a week or sooner for continued care, take your Medrol Dosepak and baclofen as prescribed, take ctyk-crq-gyugxjj Tylenol as needed, please be aware not to take xajd-jnn-ovsnepz nonsteroidals while you are taking the Medrol Dosepak, and return back to the urgent care center for any worsening symptoms, concerns, or complications. DIAGNOSIS: 1:Sciatica of left side without back pain; 2:Chronic right shoulder pain; Other chronic pain Patient Understands: Yes - Patient/family/careg aliciaer verbalizes understanding of instructions given Comment: [facility] ED Patient Summaryon 022 ED Patient Summary [facility] ? Urgent Care [address] [place] [address] PATIENT DISCHARGE INSTRUCTIONS Patient Information Name: HALI CHILD Age: 41 Years Date of : 1980 Reason For Visit: UC - Back Pain; RT SHOULDER PAIN BACK PAIN Arrival Time: 11/18/2021 11:23:53 Phone: Primary Care Physician: MAGI FRANCO Attending Physician: Yan Yarbrough PA-C Comment: Patient Education With: Address: When: MAGI FRANCO [address] [place] [phone] Business (1) Within 1 week Comments: Please follow-up with Dr. Franco, call the office schedule an appointment to be seen in a week or sooner for continued care, take your Medrol Dosepak and baclofen as prescribed, take wvaa-skr-ouewraw Tylenol as needed, please be aware not to take dpis-fay-ibedqbg nonsteroidals while you are taking the Medrol Dosepak, and return back to the urgent care center for any worsening symptoms, concerns, or complications. Shoulder Pain Many things can cause shoulder pain, including: ? An injury. ? Moving the shoulder in the same way again and again (overuse). ? Joint pain (arthritis). Pain can come from: ? Swelling and irritation (inflammation) of any part of the shoulder. ? An injury to the shoulder joint. ? An injury to: ? Tissues that connect muscle to bone (tendons). ? Tissues that connect bones to each other (ligaments). ? Bones. Follow these instructions at home: Watch for changes in your symptoms. Let your doctor know about them. Follow these instructions to help with your pain. If you have a sling: ? Wear the sling as told by your doctor. Remove it only as told by your doctor. ? Loosen the sling if your fingers: ? Tingle. ? Become numb. ? Turn cold and blue. ? Keep the sling clean. ? If the sling is not waterproof: ? Do not let it get wet. ? Take the sling off when you shower or bathe. Managing pain, stiffness, and swelling ? If told, put ice on the painful area: ? Put ice in a plastic bag. ? Place a towel between your skin and the bag. ? Leave the ice on for 20 minutes, 2?3 times a day. Stop putting ice on if it does not help with the pain. ? Squeeze a soft ball or a foam pad as much as possible. This prevents swelling in the shoulder. It also helps to strengthen the arm. General instructions ? Take mzuo-xou-nqdppef and prescription medicines only as told by your doctor. ? Keep all follow-up visits as told by your doctor. This is important. Contact a doctor if: ? Your pain gets worse. ? Medicine does not help your pain. ? You have new pain in your arm, hand, or fingers. Get help right away if: ? Your arm, hand, or fingers: ? Tingle. ? Are numb. ? Are swollen. ? Are painful. ? Turn white or blue. Summary ? Shoulder pain can be caused by many things. These include injury, moving the shoulder in the same away again and again, and joint pain. ? Watch for changes in your symptoms. Let your doctor know about them. ? This condition may be treated with a sling, ice, and pain medicine. ? Contact your doctor if the pain gets worse or you have new pain. Get help right away if your arm, hand, or fingers tingle or get numb, swollen, or painful. ? Keep all follow-up visits as told by your doctor. This is important. This information is not intended to replace advice given to you by your health care provider. Make sure you discuss any questions you have with your health care provider. Document Revised: 01/03/2019 Document Reviewed: 01/03/2019 [employer] Patient Education ? 2020 [employer] Sciatica Sciatica is pain, weakness, tingling, or loss of feeling (numbness) along the sciatic nerve. The sciatic nerve starts in the lower back and goes down the back of each leg. Sciatica usually goes away on its own or with treatment. Sometimes, sciatica may come back (recur). What are the causes? This condition happens when the sciatic nerve is pinched or has pressure put on it. This may be the result of: ? A disk in between the bones of the spine bulging out too far (herniated disk). ? Changes in the spinal disks that occur with aging. ? A condition that affects a muscle in the butt. ? Extra bone growth near the sciatic nerve. ? A break (fracture) of the area between your hip bones (pelvis). ? . ? Tumor. This is rare. What increases the risk? You are more likely to develop this condition if you: ? Play sports that put pressure or stress on the spine. ? Have poor strength and ease of movement (flexibility). ? Have had a back injury in the past. ? Have had back surgery. ? Sit for long periods of time. ? Do activities that involve bending or lifting over and over again. ? Are very overweight (obese). What are the signs or symptoms? Symptoms can vary from mild to very bad. They may include: ? Any of these proble (more content not included)... [facility] 022 Urgent Care Record [facility] ? Urgent Care [address] [place], [place] [id number] PATIENT DISCHARGE INSTRUCTIONS Patient Information Name: HALI CHILD Age: 41 Years Date of : 1980 Reason For Visit: UC - Back Pain; RT SHOULDER PAIN BACK PAIN Arrival Time: 11/18/2021 11:23:53 Phone: Primary Care Physician: MAGI FRANCO Attending Physician: Yan Yarbrough PA-C Comment: Visit Diagnosis: Diagnoses This Visit Chronic right shoulder pain (M25.511) Other chronic pain (G89.29) Sciatica of left side without back pain (M54.32) UC - Back Pain ([id number]) If you received any narcotics, sedation, or any other medication that causes drowsiness for the next 24 hours, unless otherwise directed: ? Do not drive a car. ? Do not operate machinery such as power tools, lawn mowers, drills, sewing machines, or stoves ? Avoid alcoholic beverages and drugs for allergies, nerves, or sleep ? Do not make important personal or business decisions or sign any legal documents With: Address: When: MAGI FRANCO [address] [facility] [place] [address] Business (1) Within 1 week Comments: Please follow-up with Dr. Franco, call the office schedule an appointment to be seen in a week or sooner for continued care, take your Medrol Dosepak and baclofen as prescribed, take ulbu-ioe-tejrpmv Tylenol as needed, please be aware not to take icti-ztq-mypkqgf nonsteroidals while you are taking the Medrol Dosepak, and return back to the urgent care center for any worsening symptoms, concerns, or complications. Medication Information: The exam and treatment you received today in the [facility] were for an urgent problem and are not intended as complete care. It is important for you to follow up with a doctor, nurse practitioner, or physician?s district administrative assistant for ongoing care. If your symptoms become worse or you do not improve as expected and you are unable to reach your usual health care provider, you should return to the Emergency Department, we are available 24 hours a day. For those patients who have received Radiology results, the interpretation of your X-ray as given to you by our Urgent Care physician is only a preliminary report. The Radiologist will review your films and if there is a change in the diagnosis you will be notified by phone. Please make sure you have provided a working phone number so we can reach you if necessary. In the event that you had a lab culture while you were a patient in the Urgent Care, you will be notified by phone if there is a need to change your antibiotic. Please make sure you have provided a working phone number so we can reach you if necessary. [facility] has provided you with a complete list of medications post discharge. Please inform your primary counselor/provider of your visit and for further instruction on these medications. Any specific questions regarding your chronic medications and dosages should be discussed with your primary care physician(s) and/or pharmacist. New Medications [facility], [address] [place], [place] [id number], [phone] baclofen (baclofen 10 mg oral tablet) 0.5 tab(s) Oral 3 times a day for 10 Days. Refills: 0. methylPREDNISolone (Medrol Dosepak 4 mg oral tablet) 1 packet(s) Oral once. as directed on package labeling. Refills: 0. Other Medications ketorolac (ketorolac 30 mg/mL injectable solution) 1 Milliliter Intramuscular once. MAGRU. Medications to Continue That Have Not Changed Other Medications atorvastatin (Lipitor 20 mg oral tablet) 1 tab(s) Oral every day. bisoprolol-hydrochlo rothiazide (Ziac 2.5 mg-6.25 mg oral tablet) 1 tab(s) Oral every day. cetirizine (ZyrTEC 10 mg oral tablet) 1 tab(s) Oral every day. levothyroxine (levothyroxine 100 mcg (0.1 mg) oral capsule) 1 cap(s) Oral every day. PARoxetine (Paxil 40 mg oral tablet) 1 tab(s) Oral every day. Visit Information Allergies: Substance Reaction Symptoms Type Comments sulfa drug Drug Vital Signs: Vitals and Measurements this Visit (last charted value for your 11/18/2021 visit) Vital Signs This Visit Temperature Temporal: 36.6 DegC Apical Heart Rate: 67 bpm Respiratory Rate: 18 br/min Systolic Blood Pressure: 120 mmHg Diastolic Blood Pressure: 82 mmHg SpO2: 99 % Oxygen Therapy: Room air Measurements This Visit Height: 165.1 cm Weight: 72.57 kg Body Mass Index: 26.62 kg/m2 Problems List: Problem Onset Comments Anxiety Chronic right shoulder pain Hypercholesteremia Hypertension Hypothyroidism Sciatica of left side without back pain Patient Education Shoulder Pain Many things can cause shoulder pain, including: ? An injury. ? Moving the shoulder in the same way again and again (overuse). ? Joint pain (arthritis). Pain can come from: ? Swelling and irritation (inflammation) of any part of the shoulder. ? An injury to the shoulder j (more content not included)... [facility] Provider [place] 09-29-2021 Provider Orders [id number] #1.00OTGTIFF [facility] COVID Quick Testingon 2020 Result Negative [employer] Other Consent Formson 12-27-2020 Consent Forms [id number] [facility] [place] [facility]2020 Provider Orders [id number] [facility] C[facility] 12-19-2020 Coding Summary [employer]Base 64 DahmjngkUFf6aAr+PGhl YWQ+UU0TYVJcI74apBJv cF2PT1iIIQ0QLSXIBJPL EQ3JWN7npFK9DIfkO5Pr biAv EbzjbCQqHC92CXp9WSP7 pHxiKFvxoT0ukHNcV9l4 QhOnZK26qX58WCyuLCPq GjT8InPgflgkuCOm E4tsMpGevEJqMcr+PHRh YmxlIHdpZHRoPScxMDAl SbFlnIccSP8vRd1nMHPl LWNvbGxhcHNlOiBj b9ynGAHmCXedQA8kcHoc G9TyyAJ0JZPwz5q7Uv89 dHI+DUJtRHX5kMeaEVwd p504BxFqv0bnWOZ1 yYUbQXbvDVQ7M04aj4V2 GRTrROVuSQL3eZQ7kV4i cCspwfybV8NsqYCsCtD9 WNT9lBKthO3kyLxv knibeK3xQxv+Z93EMY6Z EWZSGI4LTwa8E6DfSopu dHI+ZJ00FGPjLG75oSJh dGHyx9tscVh5MvBn JCGmSPW7bIdzTWtki2Iu OSQuQ36wzGAeu8U9YVZj kNyoaYLbSsDziFC2uK8a ECtpadnoz5hgilay Pigju8lkkv79zJ29L09h RMjoACJpDJL9WKNgABEz yHrbaz3ydG5cBu8+IDxj v3tje8aluPp0OhBa OAFynaSatTdmYNS9t2Ox Iv28W1YlcCcet3OaKej0 fn34sGYbr3A0jWC4EJbf SHJqjI0oYItdRmD1 UNHmDhZtyJ98dNWsLHow Tt6bpHbwbAfoXH2lRGOy gqffTUAtzB9aXSRyqWDu zRkgEE5tTZXjnipk w112GkXaGNI1HSMmxTTd T3SafV2aObHiOWXpEZUj J0AmvWXuRIyrN256WKms LvL1SFZtvgDnQ0Si BNHmaHoiKvD2m2I3Ig4K d3YeuyflDAQ1SLeuNJE8 WuT6EmBlQeI8E4XdRlx5 GLBspRxfSE9xU3Kq EKIdwjyrgjomkZK1EYKg WADmqU43wLScMYykXz2r c4Q8e170SPKaCCResJ65 Me9mfAzvVRVtkMJM hT0qdhicy7rfaznaMjSo MICzKZm2QDf3ZMZafMii ZyLuWOB7KaT4RKC0dSOy jO5cuNdikrwppY0f Oyc+Z87amM1pZLS4BNA5 ilneJGHodvGnUD44UB07 K0EqBqzndCZzhNE+PGRp osQjfVqdLN6qMjMw a8nhc8BuDMyuP8QdGRYf IEkeQqa0UNIdUFE0cJB8 xE8vSZDoMLfip7K0qQA4 U8SujnSjsz8uf9og BFRmPPmrG92htZOyy5I4 PLUhqEO4RONidAtpIpJc oM49Xlr+JMLeiRwyd9Hl Afpno7pit9mnsSx3 IjMwJSIgdmFsaWduPSJ0 l1TiLx65L62eTDgrQOYx HBFqKAJeZJUbxMizsf0u lR8zTz8+PGNvbCB3 sDW2oU7qVVNhBwV4FSby B548UzBgnVIkJttmp4zq t8ozzIu0IpShQHFnauEv wKqcXIA4a1NwMx11 X94yXCfhIBGkCJEuPGQp VXZsfMbyim5qpM9sXp3+ WT0vb9tfrv73vK77pEL+ KVTiTCD9eTrxKRgz VCWqrM5kJLdwLyJ7YPTl IzDdnH41tXPhSJtwOk0c sLgxyFbiAM9zXYWaeqiu p389AmUur7yeCJFj vNCwMUyoRWX0T89ql5Q1 HRJzXNSpKWU0gYA9aZ2b bGlnbjogbGVmdDsgdmVy wLdxJKssUKagB123 IHRvcDsnPlBhdGllbnQg MvZoECd0T2DcOcs0TJVb uMkrOB6azHXsNAoxDw2m qIyxtFiwJT0mHDTy ihoxe532YdTko0yaPZRw yNKrONkuVLB5C84ls6Q0 RDKyEZWlQEB2xFL3oX6a bGlnbjogbGVmdDsg fxBncSgeVMucYGzhB876 IHRvcDsnPkJpcnRoIERh aUI4VT76GL23sHCru8B9 tMR7E8GhVJVwpswh ofxjeOI2WNOaNDSqjZ82 Aa8irMptTx6jOOBiCIS8 GBOgwILwG9IjkR3fPvXc KZTzXLOmJ4LzcANn VIrrB902STsaFqO5RIBi jrTcQ7MfYFSqjTzzXnL7 u6C0Jc6YP0O7HT47TO61 nNFkv3T5tDD6T7Fc WUEftphoyikasHD6UCVh KCSuwJ57Wz9nsDeqMe9v WLVoQNE3QHIecRFsG6Bp aJ7yBjBoNFJiTWOb Q7SfcVSuHLvnI695UMaa PwA5YNZbypAgV8PkDQUj cRkuChJ1s2G3Fo5SLUr1 IV39JH99oTLlc9W3 jMH2P7UfNDIrtoabzjrv xRA4PYOdCDAagV09Zd2n gHlgHl9cJJUoGZE2OIAo iDDwY0IevS6bMbCm TLYwQWBdY7JqsRRgPOga K244JMqoVnD1PXXqmpHm T3XlGJBjfKdjJlQ2k6Y4 Cv2EHIUiIT51QLO6 iYK9CE48YL10E3DuUfoy dGFibGU+PHRhYmxlIHdp ZHRoPScxMDAlJyBzdHls BH8lJl5vDRXqNAVp tNmmyTFjHaDzc5isIVNt KWzdAB8oeDyiZ1PegIZ1 TZFgw1v3Tq48O15yD4He dXA+EHEysLE4fTB1 vV9yCmGvIfY3XPkrH423 TqRejNEuItdag8mfm2zi bXp6ZiW3QENxntKdbOex ROV1p9SlXi50P97i IHdpZHRoPSIxNSUiIHZh lJgyjb8lxK9sGx5+PGNv qBB1cDN9lR3hYvEqYaI7 GBfaD314ExEubJBl Cjshq4ske9hdySj0FjJm IUIhykJqmYeyTBO7q3Qp Nz45X4MbdGxnl6HjVfl9 ox21dZDxw4O3mRK2 O3PaKCMimhsfdARcpWog RY6aLMLthmyeQYNywR7l TINmQ2l5NiNkHfH6KRos H9WjryY0UAYhhOUr ZNnxKLI7T52ti7T3KUJj DLEpLOB4dKI4qQ9vgQjw bjogbGVmdDsgdmVydGlj JCvfHDprQ616WULz cQviYJMhxZ0yPCHkpWFu fNgyLO3cGEQbxxmyMkAU VbQRWbptO3KSJlvDDWq6 O3DtZyk6HPHtbHdy HH1caXRkFTmnUj5ykMna dAsuER0cHZEvybtoLASb xO5rPZOloXLnlDoaNG2m JKBoytkpc060SrKh DLN4BEYroROkK2UjhR8a AnTyPTMyRXUsU5AxsNGv NLukS040KRomRyV5GBBb ekYoQ4PqHJWtmIhk LiA5x3K0Di9gLQ3ePK6g FEpvBV97BS23jNTxo6F1 bNS2J5HxFAVlybxjupka sPP1MHHbGNJzyV83 nUReZVgoFt9ie8Y9i247 ELKyLMLfxY67Gj0mgBcu JPIquRFDnH2xjauyi7jt cjogIzAwMDAwMDt0 BCl2DSDziUtrMqXnWJW4 YqO9TDU0dHRqxA0flGtm tyszyZ2oVlh+NDEgWWVh ygF8E7RjXlt1ZTTv aEiqMD1epNByQCtnYj6f oNjbxExrOI3iWOFvmltj WEFacM0hBJPdrFEftHbp FT4uUOWweoxee572 SqHvNUD2XWFjmKSaU6Ib hY3hNvIfUWMlPHQeC0Ou kVIhNBwqM510GFcjEeW4 YSCupqQeH5TsZJUi lNeeGcA6g8A4Ar1WQX5H RZF6H4SpOne8JRTgyAgn QH1tmQYnIQrkJi9qvZkn iCbkFW4jWQTmxugg QOAkaP4iVTKnvHQkhSav QQ5xRYLadjnwf845JvHr MQB2BWLqtGRkA4GemO7n HgYvKZFrMWFsZ5Jb bSVcDRrsU544HOsuPiI9 QXBnmjJlS6ZxMISbpUan DdQ6a6N4In6CKRlynNO+ NS66ri23W2XcEaqy Cnm5DKFjDTC3qFV5dG6y EXXbQBypb5C6pFT7T4Lp jzMaum1so2onSFXiFIcf H06hpWAuf2I7POYs wBE5OXMenUwoRsHeqD22 Oyc+TRHobAyzz4BkHcpf k0uth2jtgXg9ScQrFCGl pcVyfZdsJAU6t6Yo Jc60O66fJIkhZUBoMMDi DIZaMSPteZfycz3cxN7t Ii8+BDXnlVC2fFV4yZ1d PhUhFlF2VMhqT531 LyDzqDBlVdbvn7pmn1bf zUi2PiIaCNSjhpDykXzg HTH4y6TcTh54N5OluNcg u8JnPsr6ne93mESn u7Y2dAM6J4RzHYBdecbm bCSvlPmdOL6jBKTurdnh VKDwaG4mKAMnH2x2HiHy EvW6KXxtI5JgorL9 CYZmxNXzQXXdfCCBpY1d rbdrl2kxdxloGrPqFOZr QKe3RQt1MWGxnXaqMtHb BYS8OlB0FXL6hZBk jH7hmYlzwmhyvA1mPda+ KTz9s1vqsTJkDU6lpYQ1 FP06DN78mSQsw7U2zGF9 D9EfLXAbubirmziz tUN1IKQzVRIbjF89Wf3e sQusLt9nVGVlBSK6PZHd xCUaH4HqgT5vCwWnRLDc FNYvB1CcvFZhXVeb D455YMbnZbO4NMBejqMx D1UwPOPauTkcTtT6t3Z0 Cr3TUU96HU63RW32sSXt x1M9wCZ8S1RgOMMt zqbgzknsnZG5FEHcHDQj oD65Qy7ohKhhLp2lHWYl CNE8BOYrjDXpE0FdpU8m OpXnXNOjQXUpH7Bk pURlQKexO779SHfaYdM8 GZLipqDfV5SeWVZioRcj BgG1d9L9Do5ERx12MR43 HG19rEKqe9F8dGR4 W8JkIPFptmvggqlykRB8 ARWzSZUktS02Ua1dqZts Ht1lWCZpSYW1BOWrvMKl I3GhcJ4cZhHzWYJs XCSjC2HybQHnWAuwN746 HJpcQqL7MVLsruVkJ9Vw EFQphKhbXxM3h7T0Gn3S LXdojji3K3ZdAvlh dHI+PB41JEEbGC27pAGt fAIqv4zxoZa0DoVjPAGn STP9cZqkGWale4TqATHk F54eqIUqc3O4AUSa bGx (more content not included)... Normal [facility] 2018 Novel Coronavirus (CoVI D-19), TERESO LCon 12-14-2020 SARS-CoV-2 (COVID-19) RNA TERESO+probe Ql (Unsp spec) Not detected Invalid Interpretation Code Not Detected [facility] Comment on above: Order Comment: [id number] Result Comment: This nucleic acid amplification test was developed and its performance characteristics determined by [employer]. Nucleic acid amplification tests include RT- PCR and TMA. This test has not been FDA cleared or approved. This test has been authorized by FDA under an Emergency Use Authorization (EUA). This test is only authorized for the duration of time the declaration that circumstances exist justifying the authorization of the emergency use of in vitro diagnostic tests for detection of SARS-CoV-2 virus and/or diagnosis of COVID-19 infection under section 564(b)(1) of the Act, 21 U.S.C. 360bbb-3(b) (1), unless the authorization is terminated or revoked sooner. When diagnostic testing is negative, the possibility of a false negative result should be considered in the context of a patient's recent exposures and the presence of clinical signs and symptoms consistent with COVID-19. An individual without symptoms of COVID-19 and who is not shedding SARS-CoV-2 virus would expect to have a negative (not detected) result in this assay. Performed At: [address] [id number] Juan Daniel Wu PhD Ph:[phone] Performed By: #### [id number] #### [facility] (DEFAULT) [address] [place] [id number] Basic Metabolic Panelon 06 Estimated GFR ( Sofie > 60 [facility] Comment on above: Result Comment: GFR estimated reference range: According to KDOQI guidelines, <60 ml/min/1.73m2 is sufficient to diagnose a patient with chronic kidney disease. Performed By: #### B MP #### [facility] [address] Estimated GFR (Non- Am > 60 [facility] Comment on above: Performed By: #### B MP #### [facility] [address] ECG 12 lead ECGon 12-04-2020 ECG 12 lead ECG [facility] Main Colp [address] [place] [address] Electrocardiograph Report Signed Patient: Hali Horvath MR#: [id number] : 1980 Acct:[id number] Age/Sex: 40 / F ADM Date: 12/04/20 Loc: Room: Type: [facility] Attending Dr: Michael Vivas MD Ordering Provider: Michael Vivas MD Date of Service: 12/04/20 ECG/ECG 12 lead ECG: pst Copies to: Test Reason : Blood Pressure : / mmHG Vent. Rate : 057 BPM Atrial Rate : 057 BPM P-R Int : 148 ms QRS Dur : 092 ms QT Int : 454 ms P-R-T Axes : 021 020 044 degrees QTc Int : 441 ms Sinus bradycardia Otherwise normal ECG No previous ECGs available Confirmed by LUÍS ROMAN DO, FACC ([id number]) on 12/05/2020 10:35:15 AM Referred By: NICK Electronically Signed By:LUÍS ROMAN DO, FACC Transcribed By: RENATA Dictated By: Luís Roman DO 12/04/20 1357 Signed By: 12/05/20 1035 [facility] Estimated glomerular filtrat ion rate (GFR) non- Americanon 12-04-2020 GFR/1.73 sq M.predicted among non-blacks MDRD (S/P/Bld) [Vol rate/Area] > 60 mL/Min [facility] No Panel Informationon 12-04 Estimated GFR () > 60 mL/Min [facility] Comment on above: GFR estimated refere nce range: According to KDOQI guidelines, <60 ml/min/1.73m2 is sufficient to diagnose a patient with chronic kidney disease. Pharmacy Creatinine Clearance (Chem N/A [facility] Serum or plasma calcium ambrose urement (mass/volume)on 12-04-2020 Calcium [Mass/Vol] 9.2 mg/dL Normal 8.2-10.2 [facility] Comment on above: Result Comment: PERF ORMED BY: [address] [place] [address] PATHOLOGIST [employer] TRENA WOLFE M.D. Performed By: #### B MP #### [address] [address] Serum or plasma chloride dario surement (moles/volume)on 12-04-2020 Chloride [Moles/Vol] 98 mmol/L Normal 95-114 [facility] Comment on above: Performed By: #### B MP #### [address] Serum or plasma creatinine m easurement with calculation of estimated glomerular filtron 12-04-2020 Creatinine [Mass/Vol] 0.77 mg/dL Normal 0.44-1.03 [facility] Comment on above: Performed By: #### B MP #### [address] Serum or plasma glucose ambrose urement (mass/volume)on 12-04-2020 Glucose [Mass/Vol] 82 mg/dL Normal 70-100 [facility] Comment on above: ADA recommended refe rence rangeRandom Glucose Reference Range is dependent on time and content of last meal. Glucose of more than 200 mg/dL in a nonstressed, ambulatory subject supports the diagnosis of Diabetes Mellitus. Result Comment: [place] om Glucose Reference Range is dependent on time and content of last meal. Glucose of more than 200 mg/dL in a nonstressed, ambulatory subject supports the diagnosis of Diabetes Mellitus. ADA recommended reference range Performed By: #### B MP #### [address] Serum or plasma potassium me asurement (moles/volume)on 12-04-2020 Potassium [Moles/Vol] 4.2 mmol/L Normal 3.5-5.1 [facility] Comment on above: Performed By: #### B MP #### [address] Serum or plasma sodium measu rement (moles/volume)on 12-04-2020 Sodium [Moles/Vol] 135 mmol/L Low 136-146 [facility] Comment on above: Performed By: #### B MP #### [address] Serum or plasma total carbon dioxide measurement (moles/volume)on 12-04-2020 CO2 [Moles/Vol] 25.5 mmol/L Normal 22.0-30.0 [facility] Comment on above: Performed By: #### B MP #### [address] Serum or plasma urea nitroge n measurement (mass/volume)on 12-04-2020 Urea nitrogen [Mass/Vol] 7 mg/dL Low 9-23 [facility] Comment on above: Performed By: #### B MP #### [address] Vital Signs Date Time Vital Sign Value Performing Clinician Facility 09-24-2022 10:25-0400 Body height 166.37 cm Sybil Yanes Other [employer] [facility] [employer] Other 09-24-2022 10:25-0400 Body mass index (BMI) [Ratio] 28.84 kg/m2 Sybil Yanes Other [employer] Other 09-24-2022 10:25-0400 Body temperature 97.2 [degF] Sybil Yanes Other [employer] Other 09-24-2022 10:25-0400 Body weight 79.83 kg Sybil Yanes Other [employer] [facility] Other 09-24-2022 10:25-0400 Respiratory rate 18 /min Sybil Yanes Other [employer] Other 09-24-2022 10:25-0400 SaO2% (BldA) [Mass fraction] 96 % Sybil Yanes Other [employer] [facility] Other 05-01-2021 16:15-0400 Body height 166.37 cm Jocelynn Gambleault Other [employer] [facility] Other 05-01-2021 16:15-0400 Body mass index (BMI) [Ratio] 28.84 kg/m2 Jocelynn Stefani Other [employer] [facility] Other 05-01-2021 16:15-0400 Body temperature 98.2 [degF] Jocelynn Gambleault Other [employer] Other 05-01-2021 16:15-0400 Body weight 79.83 kg Jocelynn Gambleault Other [employer] Other 05-01-2021 16:15-0400 Respiratory rate 18 /min Jocelynn Stefani Other [employer] [facility] Other 05-01-2021 16:15-0400 SaO2% (BldA) [Mass fraction] 97 % Jocelynn Stefani Other [employer] Other Encounters Encounter Date Encounter Type Care Provider Facility Start: 08-31-2024 End: 08-31-2024 ambulatory Lelo Curran Facility:[facility] Carine acosta Start: 08-15-2024 End: 08-15-2024 ambulatory Manoj Vázquez Facility:[facility] Carine acosta Start: 09-24-2022 Patient encounter procedure Sybil Yanes [facility] Start: 09-24-2022 End: 09-24-2022 ambulatory BOLA HERMOSILLO . [facility] [address] Other Start: 02-17-2022 End: 02-18-[address] SILVIA ROBERTS . Facility:[facility] Start: 12-16-2021 End: 12-17-[address] MAGI FRANCO . Facility:[facility] Start: 12-07-2021 End: 12-07-[address] MAGI FRANCO . Facility:[facility] Start: 05-01-2021 Office outpatient visit 15 minutes Jocelynn Ko [facility] Start: 12-04-2020 End: 12-04-2020 Patient encounter procedure Michael Vivas Work Phone: -Pre-Surgical Testing Payers Date Payer Category Payer Unknown [id number] 1980 Unknown [id number] [id number] [id number] 1980 Unknown [id number] 2.16.84 [id number] 1979 Unknown [id number] 2.16.84 [id number] 1979 Unknown [id number] 2.16.84 [id number] 1979 Unknown [id number] 2.16.8 [id number] 1979 Unknown [id number] 2.16.8 [id number] 1960 Medicaid [id number] 2. [id number] 1960 Unknown [id number] Self-pay Self Pay [id number] Social History Date Type Detail Facility Start: 12-04-2020 Tobacco smoking status NHIS Ex-smoker (finding) [facility] Start: 1980 Sex Assigned At Female F [facility] Sex Assigned At Sex Assigned At Bir th [employer] Other Clinical Note 09-24-2022 Note Date & Type Note Facility 09-24-2022 Note PROCEDURE: XR HUMERU S RT MIN 2 V HISTORY: Pain in right arm , limited range of motion; no known injury COMPARISON: None. FINDINGS: BONES:No fracture, acute abnormality, or significant arthropathy. SOFT TISSUES:No visible soft tissue swelling. EFFUSION:None visible. OTHER: Negative. IMPRESSION: 1. Normal examination. Electronically authenticated by: JASVIR PAK Date: 2022-09-24 11:24 [facility] Clinical Note 11-18-2021 Note Date & Type Note Facility 11-18-2021 Note Patient Education Ma terials Follows: Shoulder Pain Many things can cause shoulder pain, including: ? An injury. ? Moving the shoulder in the same way again and again (overuse). ? Joint pain (arthritis). Pain can come from: ? Swelling and irritation (inflammation) of any part of the shoulder. ? An injury to the shoulder joint. ? An injury to: ? Tissues that connect muscle to bone (tendons). ? Tissues that connect bones to each other (ligaments). ? Bones. Follow these instructions at home: Watch for changes in your symptoms. Let your doctor know about them. Follow these instructions to help with your pain. If you have a sling: ? Wear the sling as told by your doctor. Remove it only as told by your doctor. ? Loosen the sling if your fingers: ? Tingle. ? Become numb. ? Turn cold and blue. ? Keep the sling clean. ? If the sling is not waterproof: ? Do not let it get wet. ? Take the sling off when you shower or bathe. Managing pain, stiffness, and swelling ? If told, put ice on the painful area: ? Put ice in a plastic bag. ? Place a towel between your skin and the bag. ? Leave the ice on for 20 minutes, 2?3 times a day. Stop putting ice on if it does not help with the pain. ? Squeeze a soft ball or a foam pad as much as possible. This prevents swelling in the shoulder. It also helps to strengthen the arm. General instructions ? Take trow-swe-fzkhkcg and prescription medicines only as told by your doctor. ? Keep all follow-up visits as told by your doctor. This is important. Contact a doctor if: ? Your pain gets worse. ? Medicine does not help your pain. ? You have new pain in your arm, hand, or fingers. Get help right away if: ? Your arm, hand, or fingers: ? Tingle. ? Are numb. ? Are swollen. ? Are painful. ? Turn white or blue. Summary ? Shoulder pain can be caused by many things. These include injury, moving the shoulder in the same away again and again, and joint pain. ? Watch for changes in your symptoms. Let your doctor know about them. ? This condition may be treated with a sling, ice, and pain medicine. ? Contact your doctor if the pain gets worse or you have new pain. Get help right away if your arm, hand, or fingers tingle or get numb, swollen, or painful. ? Keep all follow-up visits as told by your doctor. This is important. This information is not intended to replace advice given to you by your health care provider. Make sure you discuss any questions you have with your health care provider. Document Revised: 01/03/2019 Document Reviewed: 01/03/2019 [employer] Patient Education ? 2020 [employer]. Sciatica Sciatica is pain, weakness, tingling, or loss of feeling (numbness) along the sciatic nerve. The sciatic nerve starts in the lower back and goes down the back of each leg. Sciatica usually goes away on its own or with treatment. Sometimes, sciatica may come back (recur). What are the causes? This condition happens when the sciatic nerve is pinched or has pressure put on it. This may be the result of: ? A disk in between the bones of the spine bulging out too far (herniated disk). ? Changes in the spinal disks that occur with aging. ? A condition that affects a muscle in the butt. ? Extra bone growth near the sciatic nerve. ? A break (fracture) of the area between your hip bones (pelvis). ? . ? Tumor. This is rare. What increases the risk? You are more likely to develop this condition if you: ? Play sports that put pressure or stress on the spine. ? Have poor strength and ease of movement (flexibility). ? Have had a back injury in the past. ? Have had back surgery. ? Sit for long periods of time. ? Do activities that involve bending or lifting over and over again. ? Are very overweight (obese). What are the signs or symptoms? Symptoms can vary from mild to very bad. They may include: ? Any of these problems in the lower back, leg, hip, or butt: ? Mild tingling, loss of feeling, or dull aches. ? Burning sensations. ? Sharp pains. ? Loss of feeling in the back of the calf or the sole of the foot. ? Leg weakness. ? Very bad back pain that makes it hard to move. These symptoms may get worse when you cough, sneeze, or laugh. They may also get worse when you sit or stand for long periods of time. How is this treated? This condition often gets better without any treatment. However, treatment may include: ? Changing or cutting back on physical activity when you have pain. ? Doing exercises and stretching. ? Putting ice or heat on the affected area. ? Medicines that help: ? To relieve pain and swelling. ? To relax your muscles. ? Shots (injections) of medicines that help to relieve pain, irritation, and swelling. ? Surgery. Follow these instructions at home: Medicines ? Take [id number]-abc-[id number] and prescription medicines only as told by your do (more content not included)... [facility] Evaluation note 05-01-2021 Note Date & Type Note Facility 05-01-2021 Evaluation note Encounter Date Diagnosis Assessment Notes Apr, Bronchitis (ICD-10 - J40) Take medications as directed. Rest and increase fluid intake. Take meds with food to prevent stomach upset. Use inhaler as needed for coughing spells and SOB. It is better to use inhaler a few times a day over the next 2-3 days. Follow up with primary care provider if symptoms do not improve with treatment plan, although it may take a few weeks for the cough to go away Apr, Contact with and (suspected) exposure to other viral communicable diseases (ICD-10 - Z20.828) Today test was performed in office. Results are currently negative. That does not mean that you will not develop COVID or do not currently have a low viral count of COVID. The rapid test works best if symptoms have been over 72 hours and the results can vary if you are asymptomatic There is a higher chance of false negative results to occur if testing is performed too soon. It is recommended that even if results are negative and you have been exposed to someone that has COVID that you follow current CDC recommendations . These can be found at CDC.GOV. Follow up with primary care provider if symptoms persist or do not improve Apr, Other Additional time spent conducting pre-visit phone call, screening for symptoms, instructions on social distancing, application and removal of PPE, and cleaning of examination room, equipment and supplies was preformed. Patient education given for testing methodology and results. Patient care instructions given in writting by [facility] document. [employer] Other Evaluation note Note Date & Type Note Facility Evaluation note No assessment information availa [facility] Evaluation note Note Date & Type Note Facility Evaluation note No Information [email or web address] Other History general Narrative - Reported Note Date & Type Note Facility History general Narrative - Reported Type Medical History Hypothyroid Medical History Migraines Medical History anxiety Surgical History D&C Surgical History x2 Surgical History Bilteral Tubal Ligation Surgical History Laparoscopy/Ovarian Cysts Surgical History hysterectomy Hospitalization History See past surgical hx [employer] Other Chief Complaint and Reason for Visit Chief Complaint Cosmetic Family History No Family History Records Found Relationship Condition Age at Onset Recorded Date/T sandra brother Myocardial infarction Unknown grandparent Cerebrovascular accident (CVA) Unknown Not Specified Hypertension Unknown Advance Directives No Advanced Directives Records Found Advance Directive Response Recorded Date/ Time Advance Directives No November 14 9 3:56pm Summary Purpose Additional Source Comments Goals (unrecognized section and content) Goals may be documented in a n alternate sectionNo InformationNo Information INFORMATION SOURCE (unrecogn ized section and content) DATE CREATED AUTHOR 07/30/2021 [facility] DATE CREATED AUTHOR AUTHOR'S TIFFANIEIZ GALILEA 09/29/2021 [facility] DATE CREATED AUTHOR AUTHOR'S ORGANIZ ATION 11/24/2021 [facility] DATE CREATED AUTHOR AUTHOR'S ORGANIZ ATION 10/02/2022 [facility] DATE CREATED AUTHOR AUTHOR'S ORGANIZ ATION 09/02/2024 [facility] REASON FOR VISIT (unrecogniz ed section and content) #26 CASAS HENRY EDGE, CONGESTI ON, COUGH, COVID Provider VisitRIGHT ARM PAIN FOR RECORDS PERTAINING TO PATIENTS WHO ARE OR HAVE BEEN ENROLLED IN A CHEMICAL DEPENDENCY/SUBSTANCEABUSE PROGRAM, SOME INFORMATION MAY BE OMITTED. This clinical summary was aggregated from multiple sources. Caution should be exercised in using it in the provision of clinical care. This summary normalizes information from multiple sources, and as a consequence, information in this document may materially change the coding, format and clinical context of patient data. In addition, data may be omitted in some cases. CLINICAL DECISIONS SHOULD BE BASED ON THE PRIMARY CLINICAL RECORDS. [facility] [employer] provides no warranty or guarantee of the accuracy or completeness of information in this document.
[2024-09-25] MEDS: KETOROLAC TROMETHAMINE 30 MG/ML VIAL IVP (15:19)
[2024-09-25] MEDS: BENZOCAINE 30 ML, lidocaine HCL 15 ML MM (15:21)
[2024-09-25] MEDS: CLINDAMYCIN PHOSPHATE/D5W 600 MG/50 ML PREMIX 100 MG IV (15:21)
[2024-09-25] MEDS: ONDANSETRON PF 4 MG/2 ML VIAL IV (15:28)
== END 2024-09-25 15:42 | disposition home or self-care (01) ==
PROVIDERS: Emergency Provider Student in an Organized Health Care Education/Training Program; PCP Specialist
DX: K04.7 Periapical abscess without sinus (principal); R13.10 Dysphagia, unspecified
CPT/HCPCS: 96365; 96375; 99284; J1885; J2405

== ENCOUNTER 2025-05-18 09:59 | Emergency (ER) | payer SELFPAY ==
[2025-05-18 10:02] VITALS: BP 135/89; PULSE 87; TEMP 37.3; O2SAT 100; BMI 21.6
--- NOTE | 2025-05-18 10:31 | ED.URI1 ---
HPI - URI/Sore Throat General Chief Complaint: Upper Respiratory Infection Stated Complaint: URTI COMPLAINTS Time Seen by Provider: 05/18/25 10:21 Source: patient Limitations: no limitations History of Present Illness HPI Narrative: The patient is a 44-year-old female with past medical history of bronchitis presenting to the ER with a cough as well as runny nose the right ear pain and generalized body ache for the last few days. Patient denies any exposure to anybody with similar symptoms She had some chills at home but no fever and she did not use any sheb-req-pheqsni medication yet Related Data Home Medications ?Medication ?Instructions ?Recorded ?Confirmed paroxetine HCl 40 mg tablet 40 mg PO DAILY 04/22/24 05/18/25 Previous Rx's ?Medication ?Instructions ?Recorded albuterol sulfate 90 mcg/actuation 2 inh inhalation Q8H PRN shortness 05/18/25 aerosol inhaler of breath or wheezing #8.5 grams azithromycin 250 mg tablet See Rx Instructions PO .COMPLEX #6 05/18/25 (Zithromax Z-Kj) tabs guaifenesin 600 mg tablet, 600 mg PO BID PRN congestion #10 05/18/25 extended release 12 hr (Mucinex) tabs prednisone 20 mg tablet 40 mg (2 x 20 mg) PO DAILY 5 days 05/18/25 #10 tabs Allergies Allergy/AdvReac Type Severity Reaction Status Date / Time Sulfa (Sulfonamide Allergy Severe Anaphylaxis Verified 05/18/25 10:02 Antibiotics) Review of Systems ROS Status of ROS 10 or more systems reviewed and unremarkable except as noted in history and below PFSH PFS Social History Little interest or pleasure in doing things: not at all Feeling down, depressed, or hopeless: not at all Exam Narrative Exam Narrative: Nurses notes and vital signs reviewed and patient is not hypoxic. General: Well-appearing and in no apparent distress. Skin: Warm, dry, no pallor noted. No rash. Head: Normocephalic, atraumatic. Neck: Supple, non-tender. Eye: Pupils are equal, round and EOMI. No scleral icterus. Ears, Nose, Mouth, and Throat: Right ear examination showed that the tympanic membrane is bulging with serous fluid behind it left ear examination was normal, the patient have nasal congestion and her pharynx shows erythema of the tonsils bilaterally with no enlargement and no compromise of the airway and the uvula is in the midline Cardiovascular: Regular Rate and Rhythm without murmur, gallop or rub. Respiratory: No accessory muscle use or respiratory distress. Lungs are clear to auscultation, no wheezing, rales or rhonchi Chest Wall: no tenderness GI: Abdomen is soft, non-distended. Normal bowel sounds. No masses appreciated. No tenderness to palpation. No rebound, guarding, or rigidity noted. Neurological: A&O x4. No cranial nerve dysfunction observed. No truncal ataxia. Moves all extremities. Sensation intact. Psychiatric: Cooperative and interactive. Normal mood and affect. Constitutional Vital Signs, click to edit/add: Last Vital Signs Temp 99.2 F 05/18/25 10:02 Pulse 88 05/18/25 10:40 Resp 18 05/18/25 10:40 BP 135/89 05/18/25 10:02 Pulse Ox 98 05/18/25 10:40 O2 Del Method Room Air 05/18/25 10:40 Course Vital Signs Vital signs: Vital Signs Temperature 99.2 F 05/18/25 10:02 Pulse Rate 87 05/18/25 10:02 Respiratory Rate 20 05/18/25 10:02 Blood Pressure 135/89 05/18/25 10:02 Pulse Oximetry 100 05/18/25 10:02 Oxygen Delivery Method Room Air 05/18/25 10:02 Temperature 99.2 F 05/18/25 10:02 Pulse Rate 88 05/18/25 10:40 Respiratory Rate 18 05/18/25 10:40 Blood Pressure 135/89 05/18/25 10:02 Pulse Oximetry 98 05/18/25 10:40 Oxygen Delivery Method Room Air 05/18/25 10:40 MDM - URI/Sore Throat MDM Narrative Medical decision making narrative: Patient presentation is concerning for mostly for otitis media for which the patient will be treated with azithromycin The patient also have a history of bronchitis with history of smoking for that she would just continue supportive care with prednisone Albuterol inhaler also to help with the cough The patient to follow-up with the primary care within 2 to 3 days and to come back to the ER in case of any worsening of the current symptoms or any new symptoms or concerns Discharge Plan Discharge Chief Complaint: Upper Respiratory Infection Clinical Impression: Otitis media, Bronchitis Patient Disposition: Home, Self-Care Time of Disposition Decision: 10:31 Condition: Good Prescriptions / Home Meds: New azithromycin [Zithromax Z-Kj] 250 mg tablet See Rx Instructions .ROUTE .COMPLEX Qty: 6 0RF Rx Instructions: For 250 mg dose pack: take 500 mg today (day 1), then 250 mg for 4 days (days 2-5) prednisone 20 mg tablet 40 mg PO DAILY 5 Days Qty: 10 0RF guaifenesin [Mucinex] 600 mg tablet extended release 12hr 600 mg PO BID PRN (Reason: congestion) Qty: 10 0RF albuterol sulfate 90 mcg/actuation HFA aerosol inhaler 2 inh inhalation Q8H PRN (Reason: shortness of breath or wheezing) Qty: 8.5 0RF No Action paroxetine HCl 40 mg tablet 40 mg PO DAILY Print Language: Setswana Instructions: Ear Infection (ED), Acute Bronchitis (ED) Referrals: Magi Franco MD [Primary Care Provider] - 1 week Discharge Date/Time: 05/18/25 10:54
[2025-05-18 10:40] VITALS: PULSE 88; O2SAT 98
[2025-05-18] MEDS: IPRATROPIUM/ALBUTEROL SULFATE 3 ML AMPUL.NEB IH (10:40)
[2025-05-18] MEDS: PREDNISONE 20 MG TABLET 40 MG PO (10:47)
== END 2025-05-18 10:54 | disposition home or self-care (01) ==
PROVIDERS: Emergency Provider Emergency Medicine; PCP Specialist
DX: J40 Bronchitis, not specified as acute or chronic (principal); H66.91 Otitis media, unspecified, right ear
CPT/HCPCS: 94640; 99283; J7512